=== PATIENT | male | born 1965 | race Caucasian/White ===

== ENCOUNTER 2020-11-23 12:49 | Emergency (ER) | payer OTHER, MEDICARE ==
[~2020-11-23] VITALS: Ht 172.7 cm; Wt 61.4 kg
[2020-11-23 13:20] LABS: MEAN CELL VOLUME 91.8 fl (80.0-94.0); MEAN CORPUSCULAR HGB 25.9 pg (27.0-31.0); MEAN CORPUSCULAR HGB CONC 28.2 g/dl (33.0-37.0); MEAN PLATELET VOLUME 10.8 fl (9.6-12.3); PLATELET COUNT AUTOMATED 380 10*3/uL (130-400); RED CELL DISTRI WIDTH 15.6 % (0-14.5); WHITE BLOOD COUNT 20.6 10*3/uL (4.8-10.8)
[2020-11-23 13:26] LABS: HEMATOCRIT 15.6 % (42.0-52.0)
[2020-11-23 13:30] LABS: ACT PARTIAL THROMBO TIME 35.6 SECONDS (20.0-32.1); INTERNATIONAL NORM RATIO 2.6 (2.0-3.5)
[2020-11-23 13:39] LABS: BASOPHILS 1 % (0-1); PLATELET SUFFICIENCY NORMAL (NORMAL); POLYCHROMASIA MODERATE; SCHISTOCYTES FEW; TOTAL CELLS COUNTED 100 #CELLS
[2020-11-23 13:46] LABS: ALBUMIN 2.5 gm/dl (3.1-4.5); ALKALINE PHOSPHATASE 59 U/L (45-117); BUN 13 mg/dl (7-24); CHLORIDE 110 mmol/L (98-107); CREATININE 1.28 mg/dL (0.70-1.30); POTASSIUM 3.6 mmol/L (3.5-5.1); SGOT/AST 11 IU/L (3-35); SGPT/ALT 15 U/L (12-78); SODIUM 139 mmol/L (136-145); TOTAL PROTEIN 5.1 gm/dL (6.4-8.2)
[2020-11-23 13:47] LABS: CPK 45 U/L (39-308)
[2020-11-23 13:48] LABS: TROPONIN I < 0.015 ng/ml (<0.045)
[2020-11-23] MEDS ORDERED: AMLODIPINE BESYL5 MG PO (16:24)
[2020-11-23] MEDS ORDERED: PLAVIX75 M1 PO (16:24)
[2020-11-23] MEDS ORDERED: CYMBALTA30 MG PO (16:25)
[2020-11-23] MEDS ORDERED: LIPITOR20 MG PO (16:25)
[2020-11-23] MEDS ORDERED: GABAPENTIN100 M2 PO (16:26)
[2020-11-23] MEDS ORDERED: JANTOVEN4 M1 PO (16:27)
[2020-11-23] MEDS ORDERED: ASPIRIN CHEWABL81 MG PO (16:28)
[2020-11-23] MEDS ORDERED: BENADRYL ALLERG25 M5 PO (16:28)
[2020-11-23 17:04] LABS: HEMATOCRIT 26.1 % (42.0-52.0)
[2020-11-23 18:41] LABS: BILIRUBIN Negative (Negative); BLOOD Negative (Negative); CLARITY Clear (Clear); COLOR Yellow (Yellow); GLUCOSE Negative (Negative); KETONE Negative (Negative); LEUKO ESTERASE Trace (Negative); NITRITE Negative (Negative); SPECIFIC GRAVITY 1.015 (1.001-1.030); UROBILINOGEN 0.2 E.U./dl (0.0-1.0)
[2020-11-23 19:05] LABS: BACTERIA 1+; RBC 0-2 rbc/hpf (0-2)
== END 2020-11-23 23:50 | disposition short-term general hospital (02) ==
LOC: ED 12:49
PROVIDERS: Emergency Medicine
DX: T79.4XXA Traumatic shock, initial encounter (principal); K62.5 Hemorrhage of anus and rectum; K62.89 Other specified diseases of anus and rectum; I73.89 Other specified peripheral vascular diseases; F17.200 Nicotine dependence, unspecified, uncomplicated; Z79.82 Long term (current) use of aspirin; Z79.899 Other long term (current) drug therapy; Z79.01 Long term (current) use of anticoagulants; W18.30XA Fall on same level, unspecified, initial encounter; Y93.89 Activity, other specified; Y92.098 Other place in other non-institutional residence as the place of occurrence of the external cause; Y99.9 Unspecified external cause status